=== PATIENT | female | born 1990 | race Hispanic/Latino ===

== ENCOUNTER 2021-07-03 21:05 | Emergency (ER) | payer SELFPAY ==
[~2021-07-03] VITALS: Ht 152.4 cm; Wt 49.9 kg
[2021-07-03] MEDS ORDERED: PENICILLIN G BENZATHINE LA 1.2 MU TBX IM STA (21:15)
[2021-07-03] MEDS ORDERED: PENICILLIN G BENZATHINE LA 1.2 MU TBX ONE (21:34)
== END 2021-07-03 22:40 | disposition home or self-care (01) ==
LOC: ER 21:17
DX: J03.90 Acute tonsillitis, unspecified (principal); S80.862A Insect bite (nonvenomous), left lower leg, initial encounter; S80.861A Insect bite (nonvenomous), right lower leg, initial encounter; F17.210 Nicotine dependence, cigarettes, uncomplicated
CPT/HCPCS: 99282; J0561